=== PATIENT | female | born 1955 | race Caucasian/White ===

== ENCOUNTER 2018-06-30 12:34 | Emergency (ER) | payer BC, OTHER ==
[2018-06-30 13:34] LABS: #Eosinphils 0.1 thou/uL (0.0-0.7); #Lymphocytes 1.8 thou/uL (1.20-3.40); #Monocytes 0.4 thou/uL (0.11-0.59); #Neutrophils 5.7 thou/uL (1.40-6.50); %Basophils 0.5 % (0.0-1.0); %Eosinophils 0.7 % (0.0-10.0); %Lymphocytes 22.8 % (21.0-51.0); %Monocytes 4.5 % (0.0-10.0); %Neutrophils 71.5 % (42.0-75.0); Hemoglobin 13.1 g/dL (12.0-16.0); Platelet Count 221 thou/uL (130-400); RBC Distribution Width 11.6 % (11.5-14.5); Red Blood Cell (RBC) Count 3.85 mill/uL (4.20-5.40)
[2018-06-30 14:01] LABS: ALT (SGPT) 25 U/L (8-55); AST (SGOT) 21 U/L (5-34); Albumin 4.5 g/dL (3.5-5.0); Alkaline Phosphatase 69 U/L (40-150); Anion Gap 12 mmol/L (10-20); BUN (Urea Nitrogen) 12 mg/dL (9.8-20.1); Bilirubin, Total 0.8 mg/dL (0.2-1.2); Calc. Creatinine Clearance 0 mL/min (70-130); Calcium 9.6 mg/dL (7.8-10.44); Carbon Dioxide 25 mmol/L (22-29); Chloride 105 mmol/L (98-107); Estimated GFR-MDRD 66; Globulin 2.7 g/dL (2.4-3.5); Glucose 109 mg/dL (70-105); Potassium 3.9 mmol/L (3.5-5.1); Protein, Total 7.2 g/dL (6.0-8.3); Sodium 138 mmol/L (136-145)
[2018-06-30] MEDS ORDERED: Ketorolac Tromethamine 30 MG/ML VIAL ONE (16:14)
[2018-06-30] MEDS ORDERED: Metoclopramide 10 MG/10 ML UDCUP ONE (16:14)
[2018-06-30] MEDS ORDERED: Metoclopramide HCl 10 MG/2 ML VIAL ONE (16:14)
[2018-06-30] MEDS ORDERED: Dexamethasone 4 mg/ml Vial ONE (16:16)
--- NOTE | 2018-06-30 16:42 | CT ---
HEAD CT WITHOUT CONTRAST: 06/30/18 HISTORY: Headache. COMPARISON: None. TECHNIQUE: Noncontrast head CT is performed from skull base to skull vertex. FINDINGS: No parenchymal hemorrhage. No extra-axial hematoma. No midline shift. Basilar cisterns are patent. Br ain volume, age appropriate. Cortical torres-white matter differentiation is preserved. The ventricles and sulci are patent and symmetric. Hyperdensities of the left and right deep torres mat ter structures due to calcification/mineralization. Adequate aeration of the sinuses and mastoid air cells. Calvarium is intact. IMPRESSION: No acute intracranial process. POS: [facility]
[2018-06-30 17:25] LABS: CK (CPK) 76 U/L (29-168); Lipase 28 U/L (8-78)
[2018-06-30 17:26] LABS: CKMB 2.9 ng/mL (0-6.6); Troponin I 0.034 ng/mL (< 0.028)
--- NOTE | 2018-07-04 10:53 | EKG ---
Test Reason : Blood Pressure : / mmHG Vent. Rate : 071 BPM Atrial Rate : 071 BPM P-R Int : 150 ms QRS Dur : 098 ms QT Int : 442 ms P-R-T Axes : 072 026 081 degrees QTc Int : 480 ms Sinus rhythm with Premature atrial complexes Prolonged QT Abnormal ECG Confirmed by REYNOLD WICK, DERRICK ([id number]), editor producer TARIK RODRIGUEZ ([id number]) on 07/04/2018 10:52:49 AM Referred By: Confirmed By:DERRICK FLAHERTY MD
== END 2018-06-30 18:22 | disposition home or self-care (01) ==
LOC: ERS 12:34
DX: R51 Headache (principal); R20.2 Paresthesia of skin; I95.9 Hypotension, unspecified; J44.9 Chronic obstructive pulmonary disease, unspecified; F41.9 Anxiety disorder, unspecified; F17.200 Nicotine dependence, unspecified, uncomplicated
CPT/HCPCS: 36415; 36416; 70450; 80053; 82553; 83690; 84484; 85025; 93005; 96365; 96375; J1100; J1885; J2765